=== PATIENT | female | born 1995 | race Caucasian/White ===

== ENCOUNTER 2016-06-02 16:54 | Emergency (ER) | payer MEDICAID ==
[2016-06-02] MEDS ORDERED: Ketorolac 30 MG/ML SDV IVPUSH ONE (17:32)
[2016-06-02] MEDS ORDERED: Sodium Chloride 0.9% 10 ML Syringe FLUSH PRN (17:33)
[2016-06-02] MEDS ORDERED: diphenhydrAMINE 50 MG/ML SDV IVPUSH ONE (17:33)
[2016-06-02] MEDS ORDERED: Prochlorperazine 10 MG/2 ML SDV IVPUSH ONE (17:33)
--- NOTE | 2016-06-02 17:36 | EDM.PDOC ---
<OfficerNaveen - Last Filed: 06/02/16 17:34> ED HPI HEADACHE COMPLAINT - General Chief Complaint: Headache Stated Complaint: VOMITTING-HAD D&C 2 WKS AGO Time Seen by Provider: 06/02/16 17:28 Source: Reports: Patient, Family, RN notes reviewed History Limitations: Reports: No limitations - History of Present Illness INITIAL COMMENTS - FREE TEXT/NARRATIVE: 20-year-old female presents emergency department for a complaint of headache nausea and diarrhea she underwent a D&C for incomplete miscarriage 2 weeks ago states he has had temperatures around 99 generally not feeling well headache really started today it is migraine type she does have a history of migraines feels similar to that - Related Data Allergies/ADRs: Allergies Allergy/AdvReac Type Severity Reaction Status Date / Time No Known Allergies Allergy Verified 05/18/16 20:35 Home Meds: Home Meds Acetaminophen 650 mg PO ASDIRECTED PRN 12/17/12 [History] Vit #108/Iron/FA [ One Tablet] 1 tab PO DAILY 11/04/15 [History ] Past Medical History VALET History: Reports: , Spontaneous , Other (see below) Other OB/BYN History: history of STD Neurological History: Reports: Concussion, Migraines Psychiatric History: Reports: Anxiety, Depression, Developmental delay Hematologic History: Reports: Blood transfusion(s) - Infectious Disease History Infectious Disease History: Reports: Influenza - Past Surgical History Female Surgical History: Reports: D&C Social & Family History - Tobacco Use Smoking Status *Q: Never Smoker Years of Tobacco use: 1 Packs/Tins Daily: 0.1 Second Hand Smoke Exposure: Yes - Caffeine Use Caffeine Use: Reports: None - Alcohol Use Days Per Week of Alcohol Use: 0 - Recreational Drug Use Recreational Drug Use: No - Living Situation & Occupation Living situation: Reports: with significant other Occupation: employed (Lives with lauren in [facility]) ED ROS GENERAL - Review of Systems Review Of Systems: See Below Constitutional: Reports: fever (feverish up to 99), fatigue HEENT: Reports: Eye pain Respiratory: Reports: no symptoms Cardiovascular: Reports: No symptoms GI/Abdominal: Reports: Diarrhea, Nausea, Vomiting. Denies: Abdominal pain : Reports: no symptoms Musculoskeletal: Reports: no symptoms Skin: Reports: no symptoms Neurological: Reports: headache - Physical Exam Exam: See Below Text/Narrative:: General: female, not in any distress, alert and oriented x3 HEENT: head is atraumatic normocephalic, eyes pupils equal round reactive to light and accommodation sclera clear no conjunctivitis appreciated. extraocular eye movements intact Ears tympanic membranes clear and cervantes landmarks and light reflex are present bilaterally canals are clear. Nose no septal deviation, nares are clear, no blood present. Mouth mucosa is moist and pink no erythema or exudate noted in soft palate, tongue is midline uvula is midline, dentition is intact. Neck: Supple no thyromegaly no tracheal deviation. Nodes: Cervical nodes subclavicular nodes nontender no palpable lymphadenopathy noted. Lungs: clear to auscultation bilaterally with symmetrical respirations, no adventitious noise appreciated. CV: Regular rate and rhythm S1 and S2 appreciated no murmurs rubs or gallops noted. Abdomen: Soft, nontender,no appreciable tenderness over the uterus, no palpable masses or organomegaly appreciated, no distention no guarding bowel sounds are present,. Neuro: Cranial nerves II through XII grossly intact Skin: Warm and dry, intact Extremities: No lower extremity edema appreciated, Course - Vital Signs Last Recorded V/S: Last Vital Signs Temp 96.8 F 06/02/16 17:12 Pulse 61 06/02/16 17:12 Resp 14 06/02/16 17:12 BP 91/44 L 06/02/16 17:12 Pulse Ox - Orders/Labs/Meds Orders: Active Orders 24 hr Category Date Time Status Peripheral IV Care [RC] . DIRECTED Care 06/02/16 17:33 Active Peripheral IV Insertion Adult [OM.PC] Urgent Oth 06/02/16 17:32 Ordered Labs: Laboratory Tests 06/02/16 06/02/16 06/02/16 Range/Units 17:42 17:42 17:42 WBC 6.7 (4.5-11.0) K/uL RBC 3.31 (3.30-5.50) M/uL Hgb 9.0 L (12.0-15.0) g/dL Hct 28.8 L (36.0-48.0) % MCV 87 (80-98) fL MCH 27 (27-31) pg MCHC 31 L (32-36) % Plt Count 340 (150-400) K/uL Neut % (Auto) 62 (36-66) % Lymph % (Auto) 27 (24-44) % Talbot % (Auto) 8 H (2-6) % Eos % (Auto) 2 (2-4) % Baso % (Auto) 0 (0-1) % Sodium 141 (140-148) mmol/L Potassium 4.2 (3.6-5.2) mmol/L Chloride 107 (100-108) mmol/L Carbon Dioxide 27 (21-32) mmol/L Anion Gap 7.5 (5.0-14.0) mmol/L BUN 8 (7-18) mg/dL Creatinine 0.8 (0.6-1.0) mg/dL Est Cr Clr Drug Dosing TNP Estimated GFR (MDRD) > 60 (>60) Glucose 82 (74-106) mg/dL Calcium 8.5 (8.5-10.1) mg/dL Total Bilirubin 0.2 (0.2-1.0) mg/dL AST 28 (15-37) U/L ALT 24 (12-78) U/L Alkaline Phosphatase 31 L (46-116) U/L C-Reactive Protein 0.19 (0.0-0.3) mg/dL Total Protein 6.8 (6.4-8.2) g/dL Albumin 3.5 (3.4-5.0) g/dL Globulin 3.3 (2.3-3.5) g/dL Albumin/Globulin Ratio 1.1 L (1.2-2.2) Meds: Medications Discontinued Medications Generic Name Dose Route Start Last Admin Trade Name Freq PRN Reason Stop Dose Admin Diphenhydramine HCl 25 mg 06/02/16 17:33 06/02/16 18:12 Benadryl IVPUSH 06/02/16 17:34 25 mg ONETIME ONE Administration Sodium Chloride 1,000 mls @ 999 mls/hr 06/02/16 17:45 06/02/16 18:14 Normal Saline IV 999 mls/hr ASDIRECTED TASNEEM Administration Ketorolac Tromethamine 30 mg 06/02/16 17:32 06/02/16 18:11 Toradol IVPUSH 06/02/16 17:33 30 mg ONETIME ONE Administration Prochlorperazine Edisylate 5 mg 06/02/16 17:33 06/02/16 18:12 Compazine IVPUSH 06/02/16 17:34 5 mg ONETIME ONE Administration Sodium Chloride 10 ml 06/02/16 17:33 06/02/16 18:11 Saline Flush FLUSH 10 ml ASDIRECTED PRN Administration Keep Vein Open Departure - Departure Disposition: Home, Self-Care 01 Clinical Impression: Migraine Qualifiers: Migraine type: unspecified Status migrainosus presence: without status migrainosus Intractability: not intractable Qualified Code(s): G43.909 - Migraine, unspecified, not intractable, without status migrainosus Instructions: Migraine Headache, [id number] Referrals: Delfino Dye MD [Primary Care Provider] - Forms: ED Department Discharge Care Plan Goals: Rest tonight, increase activity as tolerated and return if worsening or concerns. You may want to consider rechecking next week and repeating you're hemoglobin or at least updating your VALET on how you're doing. <Segundo Benitez - Last Filed: 06/02/16 21:40> Course - Re-Assessments/Exams Free Text/Narrative Re-Assessment/Exam: 06/02/16 18:59 Patient was reassured that her labs are normal. Her symptoms improved after the medication. She was discharged and encouraged to recheck next week with her VALET if she is continuing to have problems, she can return sooner if worsening. Hemoglobin was 9.0, that should be rechecked next week. Departure - Departure Time of Disposition: 19:13 Condition: good
[2016-06-02] MEDS ORDERED: Sodium Chloride 0.9% 1,000 ML IV SCH (17:45)
[2016-06-02 18:47] VITALS: BP 91/44
== END 2016-06-02 19:13 | disposition home or self-care (01) ==
LOC: JP.ED 16:54
DX: G43.909 Migraine, unspecified, not intractable, without status migrainosus (principal); Z79.899 Other long term (current) drug therapy
CPT/HCPCS: 36415; 80053; 85025; 86140; 96361; 96374; 96375; 99284; J0780; J1200; J1885; J7040; J7050

== ENCOUNTER 2017-04-11 18:06 | Emergency (ER) | payer BC, MEDICAID ==
[2017-04-11 18:26] VITALS: BP 124/81
--- NOTE | 2017-04-11 18:58 | EDM.PDOC ---
ED HPI GENERAL MEDICAL PROBLEM - General Chief Complaint: General Stated Complaint: BACK PAIN WITH COUGH Time Seen by Provider: 04/11/17 18:40 Source of Information: Reports: Patient, RN History Limitations: Reports: No Limitations - History of Present Illness INITIAL COMMENTS - FREE TEXT/NARRATIVE: 21 yo female has had flu like sx's for a few days. Today if the first day without a fever. Now has pleuritic pain to the R upper/anterior chest and posterior chest over the right scapula associated with coughing or deep breathing. Gets some relief with shallow breathing. No SOB or calf pain. Onset: Gradual Onset Date: 04/10/17 Duration: Hour(s):, Intermittent Location: Reports: Chest, Back Quality: Reports: Sharp Severity: Moderate Improves with: Reports: Rest Worsens with: Reports: Breathing, Other (coughing) Context: Reports: Other (flu-like illness) Associated Symptoms: Reports: Cough, Fever/Chills (now resolved.). Denies: Shortness of Breath Treatments COMMISSARY STEWARD: Reports: Other (see below) (none) Right Shoulder Pain Score (Numeric/FACES): 2 - Related Data Allergies Allergy/AdvReac Type Severity Reaction Status Date / Time No Known Allergies Allergy Verified 05/18/16 20:35 Home Meds: Home Meds Acetaminophen 650 mg PO ASDIRECTED PRN 12/17/12 [History] Vit #108/Iron/FA [ One Tablet] 1 tab PO DAILY 11/04/15 [History ] Ferrous Sulfate [Iron] 325 mg PO DAILY 04/11/17 [History] Ibuprofen [Advil] 200 mg PO ASDIRECTED PRN 04/11/17 [History] Past Medical History - Past Health History Medical/Surgical History: Denies Medical/Surgical History INSEAMER History: Reports: , Spontaneous , Other (See Below) Other OB/BYN History: history of STD Neurological History: Reports: Concussion, Migraines Psychiatric History: Reports: Anxiety, Depression, Developmental Delay Hematologic History: Reports: Blood Transfusion(s) - Infectious Disease History Infectious Disease History: Reports: Chicken Pox - Past Surgical History Female Surgical History: Reports: D&C Social & Family History - Tobacco Use Smoking Status *Q: Never Smoker Years of Tobacco use: 1 Packs/Tins Daily: 0.1 Second Hand Smoke Exposure: Yes - Caffeine Use Caffeine Use: Reports: Coffee, Tea - Alcohol Use Days Per Week of Alcohol Use: 0 - Recreational Drug Use Recreational Drug Use: No - Living Situation & Occupation Living situation: Reports: with Significant Other Occupation: Employed ED ROS GENERAL - Review of Systems Review Of Systems: See Below Constitutional: Reports: No Symptoms HEENT: Reports: Rhinitis (minimal, clear), Sinus Problem (mild sinus pressure in the maxillary region bilat.) Respiratory: Reports: Pleuritic Chest Pain, Cough. Denies: Wheezing, Sputum, Hemoptysis Cardiovascular: Reports: Chest Pain (R upper/anterior with breathing/coughing) Endocrine: Reports: No Symptoms GI/Abdominal: Reports: No Symptoms : Reports: No Symptoms Musculoskeletal: Reports: Back Pain (R scapular region worse with coughing) Skin: Reports: No Symptoms Neurological: Reports: No Symptoms ED EXAM, GENERAL - Physical Exam Exam: See Below Exam Limited By: No Limitations General Appearance: Alert, WD/WN, No Apparent Distress Eye Exam: Bilateral Eye: Normal Inspection Ears: Normal External Exam, Normal Canal, Hearing Grossly Normal, Normal TMs Ear Exam: Bilateral Ear: Auricle Normal, Canal Normal, TM normal Nose: Normal Inspection, Normal Mucosa, No Blood Throat/Mouth: Normal Inspection, Normal Lips, Normal Oropharynx, Normal Voice, No Airway Compromise Head: Atraumatic, Normocephalic Neck: Normal Inspection, Supple, Non-Tender Respiratory/Chest: No Respiratory Distress, Lungs Clear, Normal Breath Sounds, No Accessory Muscle Use, Other (Tenderness on palpation of a rib to the R upper chest. No crepitus or bruising.) Cardiovascular: Regular Rate, Rhythm, No Edema GI/Abdominal: Normal Bowel Sounds, Soft, Non-Tender, No Distention Back Exam: Normal Inspection, Other (muscular tenderness in region of back to the upper R scapula. ). No: CVA Tenderness (R), CVA Tenderness (L) Extremities: Normal Inspection, Normal Range of Motion, Non-Tender, No Pedal Edema Neurological: Alert, Oriented, CN II-XII Intact, Normal Cognition, No Motor/ Sensory Deficits Psychiatric: Normal Affect, Normal Mood Skin Exam: Warm, Dry, Intact, Normal Color, No Rash Lymphatic: No Adenopathy Course - Vital Signs Last Recorded V/S: Last Vital Signs Temp 36.5 C 04/11/17 18:28 Pulse 85 04/11/17 18:28 Resp 16 04/11/17 18:28 BP 124/81 04/11/17 18:28 Pulse Ox 99 04/11/17 18:28 Departure - Departure Time of Disposition: 19:00 Disposition: Home, Self-Care 01 Condition: Good Clinical Impression: Musculoskeletal chest pain, Cough - Discharge Information Referrals: Delfino Dye MD [Primary Care Provider] - Forms: ED Department Discharge Additional Instructions: Take ibuprofen 600 mg every 6 hrs with food for pain relief. Use the cough med as directed and the Flexeril as needed. Rest. Recheck for fever or SOB.
== END 2017-04-11 19:11 | disposition home or self-care (01) ==
LOC: JP.ED 18:06
DX: R07.89 Other chest pain (principal); R05 Cough; Z77.22 Contact with and (suspected) exposure to environmental tobacco smoke (acute) (chronic)
CPT/HCPCS: 99285

== ENCOUNTER 2019-07-23 20:43 | Emergency (ER) | payer BC ==
[2019-07-23 21:02] VITALS: BP 128/80; PULSE 89
[2019-07-23] MEDS ORDERED: Ondansetron 4 MG/2 ML SDV IVPUSH ONE (21:07)
[2019-07-23] MEDS: Lactated Ringers 1,000 ML IV SCH ×2 (21:29→22:34)
[2019-07-23] MEDS ORDERED: diphenhydrAMINE 25 MG Cap PO ONE (22:50)
--- NOTE | 2019-07-24 00:06 | EDM.PDOC ---
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 Stated Complaint: NAUSA / VOMITING Time Seen by Provider: 07/23/19 21:06 Source of Information: Reports: Patient, RN History Limitations: Reports: No Limitations - History of Present Illness Onset: Today Onset Date: 07/24/19 Onset Time: 11:30 Location: Reports: Generalized Quality: Reports: Same as Previous Episode Severity: Severe Improves with: Reports: None Worsens with: Reports: None Context: Reports: Other (Migraine headache in ) Associated Symptoms: Reports: Headaches, Nausea/Vomiting Treatments HUMAN RESOURCES TECHNICIAN: Reports: Food (ate crackers after each emesis with slight improvement.) headache Pain Score (Numeric/FACES): 4 - Related Data Allergies Allergy/AdvReac Type Severity Reaction Status Date / Time No Known Allergies Allergy Verified 07/23/19 21:26 Home Meds: Home Meds Acetaminophen 650 mg PO ASDIRECTED PRN 12/17/12 [History] Mv-Mn/Iron/FA/Herbal/Digestive [ One Tablet] 1 tab PO DAILY 11/04/15 [ History] Past Medical History - Past Health History Medical/Surgical History: Denies Medical/Surgical History HEENT History: Reports: Impaired Vision COUNTY HOME DEMONSTRATOR History: Reports: , Spontaneous , Other (See Below) Other COUNTY HOME DEMONSTRATOR History: history of STD Neurological History: Reports: Concussion, Migraines Psychiatric History: Reports: Anxiety, Depression, Developmental Delay Hematologic History: Reports: Blood Transfusion(s) - Infectious Disease History Infectious Disease History: Reports: Chicken Pox - Past Surgical History Female Surgical History: Reports: D&C Social & Family History - Tobacco Use Smoking Status *Q: Never Smoker - Caffeine Use Caffeine Use: Reports: Coffee - Recreational Drug Use Recreational Drug Use: No - Living Situation & Occupation Living situation: Reports: with Significant Other Occupation: Employed ED ROS GENERAL - Review of Systems Review Of Systems: See Below Constitutional: Reports: Fatigue, Decreased Appetite, Other (reports history of Migraine headache, now worse with .) HEENT: Reports: No Symptoms Respiratory: Reports: No Symptoms Cardiovascular: Reports: No Symptoms Endocrine: Reports: No Symptoms GI/Abdominal: Reports: No Symptoms : Reports: No Symptoms, Other ( at 13 weeks, denies any abdominal cramps, vaginal discharge, bleeding, spotting or leakage of fluids.) Musculoskeletal: Reports: No Symptoms Skin: Reports: No Symptoms Neurological: Reports: Headache (past history of Migraine Headaches.) Psychiatric: Reports: No Symptoms Hematologic/Lymphatic: Reports: No Symptoms Immunologic: Reports: No Symptoms ED EXAM, GI/ABD - Physical Exam Exam: See Below Exam Limited By: No Limitations General Appearance: Alert, Moderate Distress (laying on stretcher with cool cloth over eyes, darken room.) Eyes: Bilateral: Eyelid Inflammation (eye lids swollen, eyes are light sensitive.) Ears: Normal External Exam Nose: Normal Inspection Throat/Mouth: Normal Inspection Head: Atraumatic, Normocephalic Neck: Normal Inspection, Supple, Non-Tender, Full Range of Motion Respiratory/Chest: No Respiratory Distress, Lungs Clear, Normal Breath Sounds, No Accessory Muscle Use, Chest Non-Tender Cardiovascular: Normal Peripheral Pulses, Regular Rate, Rhythm, No Edema, No Gallop, No JVD, No Murmur, No Rub GI/Abdominal Exam: Normal Bowel Sounds, Soft, Non-Tender, No Distention, Other ( Heart tones at 160) (Female) Exam: Deferred Rectal (Female) Exam: Deferred Back Exam: Normal Inspection, Full Range of Motion Extremities: Normal Inspection, Normal Range of Motion, Non-Tender, Normal Capillary Refill, No Pedal Edema Neurological: Alert, Oriented, Normal Cognition, Normal Gait Psychiatric: Normal Affect, Normal Mood Skin Exam: Warm, Dry, Intact, Normal Color, No Rash Lymphatic: No Adenopathy Course - Vital Signs Last Recorded V/S: Last Vital Signs Temp 36.8 C 07/23/19 21:32 Pulse 89 07/23/19 21:32 Resp 16 07/23/19 21:32 BP 128/80 07/23/19 21:32 Pulse Ox 97 07/23/19 21:32 - Orders/Labs/Meds Orders: Active Orders 24 hr Category Date Time Status Lactated Ringers [Ringers, Lactated] 1,000 ml Med 07/23/19 21:15 Active IV ASDIRECTED Medication Orders Lactated Ringer's (Ringers, Lactated) 1,000 mls @ 999 mls/hr IV ASDIRECTED TASNEEM Last Admin: 07/23/19 22:34 Dose: 999 mls/hr Infusion: 07/23/19 22:30 Dose: 999 mls/hr Admin: 07/23/19 21:29 Dose: 999 mls/hr Labs: Laboratory Tests 07/23/19 Range/Units 22:34 Urine Color Yellow (YELLOW) Urine Appearance Cloudy A (CLEAR) Urine pH 7.5 (5.0-8.0) Ur Specific [place] 1.020 (1.008-1.030) Urine Protein Negative (NEGATIVE) mg/dL Urine Glucose (UA) Negative (NEGATIVE) mg/dL Urine Ketones Trace H (NEGATIVE) mg/dL Urine Occult Blood Negative (NEGATIVE) Urine Nitrite Negative (NEGATIVE) Urine Bilirubin Negative (NEGATIVE) Urine Urobilinogen 0.2 (0.2-1.0) EU/dL Ur Leukocyte Esterase Trace H (NEGATIVE) Urine RBC 0-5 (0-5) Urine WBC 0-5 (0-5) Ur Epithelial Cells Many Amorphous Sediment Many Urine Bacteria Not seen Urine Mucus Rare Meds: Medications Generic Name Dose Route Start Last Admin Trade Name Freq PRN Reason Stop Dose Admin Lactated Ringer's 1,000 mls @ 999 mls/hr 07/23/19 21:15 07/23/19 22:34 Ringers, Lactated IV 999 mls/hr ASDIRECTED TASNEEM Administration Discontinued Medications Generic Name Dose Route Start Last Admin Trade Name Freq PRN Reason Stop Dose Admin Diphenhydramine HCl 25 mg 07/23/19 22:50 07/23/19 23:16 Benadryl PO 07/23/19 22:51 25 mg ONETIME ONE Administration Ondansetron HCl 4 mg 07/23/19 21:07 07/23/19 21:38 Zofran IVPUSH 07/23/19 21:08 4 mg ONETIME ONE Administration - Re-Assessments/Exams Free Text/Narrative Re-Assessment/Exam: 07/24/19 00:14 -kept in darken room -IV fluids LR x 2 liters -IV Zofran 4mg -PO benedryl -labs urine with micro without signs of infection Will plan to discharge to home if migraine headache resolves will advise to stay at home and rest, push fluids, follow up with Primary Care Provider. Departure - Departure Time of Disposition: 00:49 Disposition: Home, Self-Care 01 Condition: Good Clinical Impression: Migraine headache - Discharge Information *PRESCRIPTION DRUG MONITORING PROGRAM REVIEWED*: Not Applicable *COPY OF PRESCRIPTION DRUG MONITORING REPORT IN PATIENT GUSTAVO: Not Applicable Instructions: Migraine Headache Referrals: Delfino Dye MD [Primary Care Provider] - Forms: ED Department Discharge, ED Return to Work/School Form Care Plan Goals: Migraine Headache in -given IV fluids, Benadryl and IV Zofran IV Tylenol in ER -will discharge to home. advise to rest, take anti nausea medication as directed. -follow up with Primary Care Provider. -return to ER if not improved or symptoms worsen. Sepsis Event Note - Evaluation Sepsis Screening Result: No Definite Risk - Focused Exam Vital Signs: Vital Signs Temp Pulse Resp BP Pulse Ox 07/23/19 21:32 36.8 C 89 16 128/80 97 07/23/19 20:58 36.8 C 89 16 128/80 97 Date Exam was Performed: 07/24/19 Time Exam was Performed: 00:07 - Problem List & Annotations (1) Migraine headache SNOMED Code(s): 85461724 Code(s): G43.909 - MIGRAINE, UNSP, NOT INTRACTABLE, WITHOUT STATUS MIGRAINOSUS Status: Acute Current Visit: Yes Qualifiers: Migraine type: without aura Intractability: intractable - Problem List Review Problem List Initiated/Reviewed/Updated: Yes - My Orders Last 24 Hours: My Active Orders 07/23/19 21:15 Lactated Ringers [Ringers, Lactated] 1,000 ml IV ASDIRECTED - Assessment/Plan Last 24 Hours: My Active Orders 07/23/19 21:15 Lactated Ringers [Ringers, Lactated] 1,000 ml IV ASDIRECTED Assessment:: Migraine Headache in -given IV fluids, benedryl and Zofran in ER -will discharge to home. advise to rest, take anti nausea medication as directed. follow up with Primary Care Provider. -return to ER if not improved or symptoms worsen. Plan: Migraine Headache in -given IV fluids, Benadryl and Zofran. IV Tylenol in ER -will discharge to home. advise to rest, take anti nausea medication as directed. -follow up with Primary Care Provider for a recheck. -[facility] script for Zofran and Benedryl as directed -return to ER if not improved or symptoms worsen.
[2019-07-24] MEDS ORDERED: Acetaminophen 1,000 MG in Premix Bag 1 BAG IV ONE (00:46)
== END 2019-07-24 01:27 | disposition home or self-care (01) ==
LOC: JP.ED 20:43
DX: O99.351 Diseases of the nervous system complicating pregnancy, first trimester (principal); G43.909 Migraine, unspecified, not intractable, without status migrainosus; Z3A.13 13 weeks gestation of pregnancy
CPT/HCPCS: 81001; 96361; 96374; 96375; 99284; A9270; J0131; J2405; J7120

== ENCOUNTER 2020-09-22 17:58 | Emergency (ER) | payer BC, MEDICAID ==
[2020-09-22] MEDS ORDERED: Sodium Chloride 0.9% 1,000 ML IV SCH (18:30)
[2020-09-22] MEDS ORDERED: Dexamethasone 4 MG/ML SDV IVPUSH ONE (18:30)
[2020-09-22] MEDS ORDERED: Prochlorperazine 10 MG/2 ML SDV IVPUSH ONE (18:30)
[2020-09-22] MEDS ORDERED: Sodium Chloride 0.9% 10 ML Syringe FLUSH PRN (18:30)
[2020-09-22] MEDS ORDERED: diphenhydrAMINE 50 MG/ML SDV IVPUSH ONE (18:30)
[2020-09-22] MEDS ORDERED: Ketorolac 30 MG/ML SDV IVPUSH ONE (18:30)
--- NOTE | 2020-09-22 20:10 | EDM.PDOC ---
ED HPI GENERAL MEDICAL PROBLEM - General Chief Complaint: Headache Stated Complaint: MIGRANE AND VOMITING Time Seen by Provider: 09/22/20 18:30 Source of Information: Reports: Patient History Limitations: Reports: No Limitations - History of Present Illness INITIAL COMMENTS - FREE TEXT/NARRATIVE: Sherri is a 25-year-old female presenting to the ED for evaluation of migraine headache. Patient awoke this morning with a migraine and tried taking acetaminophen at home but was unable to swallow it before she was vomiting. She has significant photophobia. The headache is left parietal frontal. This is typical of her migraine headaches which she has had most of her life. She states she gets about 1 headache a month. She denies any trauma. Headache Pain Score (Numeric/FACES): 6 - Related Data Allergies Allergy/AdvReac Type Severity Reaction Status Date / Time No Known Allergies Allergy Verified 12/13/19 10:03 Home Meds: Home Meds Acetaminophen 325 - 650 mg PO ASDIRECTED PRN 12/17/12 [History] Mv-Mn/Iron/FA/Herbal/Digestive [ One Tablet] 1 tab PO DAILY 11/04/15 [History] Past Medical History - Past Health History Medical/Surgical History: Denies Medical/Surgical History HEENT History: Reports: Impaired Vision DRYWALL TAPER History: Reports: , Spontaneous , Other (See Below) Other DRYWALL TAPER History: history of STD Neurological History: Reports: Concussion, Migraines Psychiatric History: Reports: Anxiety, Depression, Developmental Delay Hematologic History: Reports: Blood Transfusion(s) - Infectious Disease History Infectious Disease History: Reports: Chicken Pox - Past Surgical History Female Surgical History: Reports: D&C Social & Family History - Tobacco Use Tobacco Use Status *Q: Never Tobacco User - Caffeine Use Caffeine Use: Reports: Coffee, Tea - Recreational Drug Use Recreational Drug Use: No - Living Situation & Occupation Living situation: Reports: with Significant Other Occupation: Employed ED ROS GENERAL - Review of Systems Review Of Systems: See Below Constitutional: Reports: No Symptoms HEENT: Reports: No Symptoms Respiratory: Reports: No Symptoms Cardiovascular: Reports: No Symptoms Endocrine: Reports: No Symptoms GI/Abdominal: Reports: Nausea, Vomiting : Reports: No Symptoms Musculoskeletal: Reports: No Symptoms Skin: Reports: No Symptoms Neurological: Reports: Headache Psychiatric: Reports: No Symptoms Hematologic/Lymphatic: Reports: No Symptoms Immunologic: Reports: No Symptoms - Physical Exam Exam: See Below Exam Limited By: No Limitations General Appearance: Alert, Anxious, Moderate Distress Eye Exam: Bilateral Eye: EOMI, PERRL Throat/Mouth: Normal Inspection, Normal Oropharynx, Normal Voice, No Airway Compromise Head Exam: Atraumatic, Normocephalic Neck: Normal Inspection, Supple, Non-Tender, Full Range of Motion Respiratory/Chest: No Respiratory Distress, Lungs Clear, Normal Breath Sounds Cardiovascular: Normal Peripheral Pulses, Regular Rate, Rhythm, No Murmur GI/Abdominal: Normal Bowel Sounds, Soft, Non-Tender Neuro Exam (Abbreviated): Alert, Oriented, CN II-XII Intact, Normal Cognition, No Motor/Sensory Deficits Extremities: Normal Inspection Psychiatric: Normal Affect, Normal Mood Skin Exam: Warm, Dry Course - Vital Signs Last Recorded V/S: Last Vital Signs Temp 36.4 C 09/22/20 18:41 Pulse 67 09/22/20 18:41 Resp 16 09/22/20 18:41 BP 118/78 09/22/20 18:41 Pulse Ox 97 09/22/20 18:41 - Orders/Labs/Meds Orders: Active Orders 24 hr Category Date Time Status Sodium Chloride 0.9% [Normal Saline] 1,000 ml Med 09/22/20 18:30 Active IV ASDIRECTED Sodium Chloride 0.9% [Saline Flush] Med 09/22/20 18:30 Active 10 ml FLUSH ASDIRECTED PRN Saline Lock Insert [OM.PC] Routine Oth 09/22/20 18:30 Ordered Medication Orders Sodium Chloride (Normal Saline) 1,000 mls @ 999 mls/hr IV ASDIRECTED TASNEEM Last Admin: 09/22/20 18:58 Dose: 999 mls/hr Documented by: PHYLLIS Sodium Chloride (Sodium Chloride 0.9% 10 Ml Syringe) 10 ml FLUSH ASDIRECTED PRN PRN Reason: Keep Vein Open Last Admin: 09/22/20 19:02 Dose: 10 ml Documented by: PHYLLIS Meds: Medications Generic Name Dose Route Start Last Admin Trade Name Freq PRN Reason Stop Dose Admin Sodium Chloride 1,000 mls @ 999 mls/hr 09/22/20 18:30 09/22/20 18:58 Normal Saline IV 999 mls/hr ASDIRECTED TASNEEM Administration Sodium Chloride 10 ml 09/22/20 18:30 09/22/20 19:02 Sodium Chloride 0.9% 10 Ml Syringe FLUSH 10 ml ASDIRECTED PRN Administration Keep Vein Open Discontinued Medications Generic Name Dose Route Start Last Admin Trade Name Maryanne PRN Reason Stop Dose Admin Dexamethasone 10 mg 09/22/20 18:30 09/22/20 18:58 Dexamethasone 4 Mg/Ml Sdv IVPUSH 09/22/20 18:31 10 mg ONETIME ONE Administration Diphenhydramine HCl 50 mg 09/22/20 18:30 09/22/20 18:54 Diphenhydramine 50 Mg/Ml Sdv IVPUSH 09/22/20 18:31 50 mg ONETIME ONE Administration Ketorolac Tromethamine 30 mg 09/22/20 18:30 09/22/20 18:54 Ketorolac 30 Mg/Ml Sdv IVPUSH 09/22/20 18:31 30 mg ONETIME ONE Administration Prochlorperazine Edisylate 10 mg 09/22/20 18:30 09/22/20 18:56 Prochlorperazine 10 Mg/2 Ml Sdv IVPUSH 09/22/20 18:31 10 mg ONETIME ONE Administration - Re-Assessments/Exams Free Text/Narrative Re-Assessment/Exam: 09/22/20 20:09 an IV was established and patient was given a liter of IV normal saline. The patient was given a cocktail of medications consisting of Toradol 30 mg IV push, Compazine 10 mg IV push, dexamethasone 10 mg IV push, and diphenhydramine 50 mg IV push. The patient has had complete resolution of her headache with this cocktail. At this time she is suitable for discharge home in satisfactory condition. Indications return to the ED were discussed. Departure - Departure Time of Disposition: 20:06 Disposition: Home, Self-Care 01 Clinical Impression: Migraine - Discharge Information Instructions: Migraine Headache, [id number] Referrals: Delfino Dye MD [Primary Care Provider] - Care Plan Goals: I am glad you are feeling better. You may resume regular life at this time. Return to the ED should you need our help again in the future. Give the baby a big hug for me. Sepsis Event Note (ED) - Evaluation Sepsis Screening Result: No Definite Risk - Focused Exam Vital Signs: Vital Signs Temp Pulse Resp BP Pulse Ox 09/22/20 18:41 36.4 C 67 16 118/78 97 09/22/20 18:26 36.4 C 67 16 118/78 97 - Problem List & Annotations (1) Migraine SNOMED Code(s): 60208272 Code(s): G43.909 - MIGRAINE, UNSP, NOT INTRACTABLE, WITHOUT STATUS MIGRAINOSUS Status: Acute Priority: Medium Current Visit: Yes - Problem List Review Problem List Initiated/Reviewed/Updated: Yes - My Orders Last 24 Hours: My Active Orders 09/22/20 18:30 Sodium Chloride 0.9% [Normal Saline] 1,000 ml IV ASDIRECTED Sodium Chloride 0.9% [Saline Flush] 10 ml FLUSH ASDIRECTED PRN Saline Lock Insert [OM.PC] Routine - Assessment/Plan Last 24 Hours: My Active Orders 09/22/20 18:30 Sodium Chloride 0.9% [Normal Saline] 1,000 ml IV ASDIRECTED Sodium Chloride 0.9% [Saline Flush] 10 ml FLUSH ASDIRECTED PRN Saline Lock Insert [OM.PC] Routine
[2020-09-22 20:18] VITALS: BP 120/74; PULSE 92
== END 2020-09-22 20:18 | disposition home or self-care (01) ==
LOC: JP.ED 17:58
DX: G43.909 Migraine, unspecified, not intractable, without status migrainosus (principal)
CPT/HCPCS: 96374; 96375; 99283; J0780; J1100; J1200; J1885; J7030

== ENCOUNTER 2021-10-03 18:28 | Emergency (ER) | payer BC, MEDICAID ==
[2021-10-03 18:46] VITALS: BP 124/63; PULSE 80
== END 2021-10-03 20:43 | disposition home or self-care (01) ==
LOC: JP.ED 18:28
DX: O03.4 Incomplete spontaneous abortion without complication (principal)
CPT/HCPCS: 36415; 76817; 81001; 84702; 85025; 99283; 99284-25

== ENCOUNTER 2022-05-21 00:18 | Emergency (ER) | payer BC, MEDICAID ==
[2022-05-21] MEDS ORDERED: Penicillin G Benzathine 1,200,000 Units/2 ML Syringe IM ONE (01:44)
[2022-05-21 02:06] LABS: CORONAVIRUS COVID-19 NAA NEGATIVE (NEGATIVE)
[2022-05-21] MEDS ORDERED: Metoclopramide 10 MG/2 ML SDV IVPUSH ONE (02:31)
[2022-05-21] MEDS ORDERED: Sodium Chloride 0.9% 1,000 ML IV SCH (02:45)
[2022-05-21 04:10] VITALS: BP 114/74; PULSE 108
== END 2022-05-21 04:18 | disposition home or self-care (01) ==
LOC: JP.ED 00:18
DX: J02.0 Streptococcal pharyngitis (principal); G44.1 Vascular headache, not elsewhere classified; Z20.822 Contact with and (suspected) exposure to COVID-19; M79.10 Myalgia, unspecified site
CPT/HCPCS: 0241U; 87880; 96361; 96372; 96374; 99284; J0561; J2765; J7030

== ENCOUNTER 2025-02-15 21:23 | Emergency (ER) | payer BC, MEDICAID ==
[2025-02-15 21:45] VITALS: BP 151/101; PULSE 108
[2025-02-15] MEDS: Ketorolac 15 MG/ML SDV IVPUSH ONE (22:08)
[2025-02-15] MEDS: Ketorolac 15 MG/ML SDV IM ONE (22:42)
== END 2025-02-15 23:10 | disposition home or self-care (01) ==
LOC: JP.ED 21:23
DX: M54.30 Sciatica, unspecified side (principal)
CPT/HCPCS: 96372; 99283; A9270; J1885